=== PATIENT | male | born 1960 | race Caucasian/White ===

== ENCOUNTER → 2020-11-09 | Outpatient (CLI) | payer OTHER | LOC: SJCVC 15:59 → SJCVCIMAG 15:59 | PROVIDERS: ATTEND Internal Medicine | DX: I08.8 Other rheumatic multiple valve diseases (principal); I25.10 Atherosclerotic heart disease of native coronary artery without angina pectoris; F17.200 Nicotine dependence, unspecified, uncomplicated; Z95.1 Presence of aortocoronary bypass graft ==

== ENCOUNTER → 2020-12-25 | Outpatient (CLI) | payer OTHER | LOC: LAB 09:51 | PROVIDERS: ATTEND Internal Medicine Cardiovascular Disease | DX: Z20.822 Contact with and (suspected) exposure to COVID-19 (principal) ==

== ENCOUNTER 2020-12-29 06:32 | Inpatient (IN) | payer OTHER ==
[~2020-12-29] VITALS: Ht 180.3 cm; Wt 127.0 kg
--- NOTE | ~2020-12-29 | P ---
[facility] [place], [place] [address] PROCEDURE REPORT Name: JAKI GONZALEZ Room #: 212-P [facility] M.R.#: [id number] Admission: 12/29/20 Attend Phys: Spencer Don MD Discharge: Date of : 58 Report #: [id number] THIS REPORT FOR: cc: Rachel Zhang MD,Rachel Don,Spencer Barrios MD ~ DATE OF SERVICE: 12/29/2020 PROCEDURE: Pacemaker implantation. PREOPERATIVE DIAGNOSES: 1. Sick sinus syndrome. 2. Complete heart block. HISTORY: The patient is a 60-year-old with symptomatic bradycardia secondary to sick sinus syndrome and intermittent complete heart block, here for dual chamber pacemaker implantation. ANESTHESIA: The patient underwent MAC anesthesia with no anesthesia related complications. DESCRIPTION OF PROCEDURE: The patient underwent informed consent. We discussed the details of the procedure including the risks, which include but not limited to bleeding, infection, vascular damage, cardiac perforation and pneumothorax. He understood these risks and is willing to proceed. The patient was brought to EP laboratory in fasting and sedated state, prepped and draped in a sterile fashion, underwent venogram and received IV antibiotics prior to initiation of the procedure. Next, lidocaine was injected below the level of left clavicle. Incision was made, pocket created over the prepectoral fascia and access was obtained twice to left axillary vein using the extrathoracic approach. Sheaths were positioned using the modified Seldinger technique and a lead was repositioned multiple times of the right ventricle. He had a lot of tricuspid regurgitation and small R waves. Eventually, I was at the apical septum with adequate pacing and sensing thresholds. Next, atrial lead was positioned in right atrial appendage with adequate pacing and sensing thresholds. Leads were sutured to prepectoral fascia using Ethibond suture. The device was connected. Tug test performed. Pocket was irrigated with vancomycin. The pocket was closed in 2 layers and surgical glue was placed to outer skin layer. The patient awoke neurologically and hemodynamically intact. No complications and no significant bleeding. Implanted pacemaker was a Medtronic model number W3DR01, serial #[id number]. Atrial lead was a model #5076, 52 cm, serial #[id number]. RV lead was a model #5076, 58 cm, serial #[id number]. Atrial lead demonstrated P waves 1.8 millivolts, pacing impedance 608 ohms, pacing threshold 0.9 volts at 0.5 milliseconds. RV lead demonstrated [facility] [place] [place] [address] [place] [address] PROCEDURE REPORT Name: JAKI GONZALEZ Room #: 212-P [facility]#: [id number] Admission: 12/29/20 Attend Phys: Spencer Don MD Discharge: Date of : 58 Report #: [id number] R waves of 5.9 millivolts, pacing impedance of 988 ohms, pacing threshold 0.7 volts at 0.5 milliseconds. The device was programmed to the DDDR 60-130 mode. MVP was enabled. CONCLUSIONS: 1. Successful dual-chamber pacemaker implantation. 2. Satisfactory atrial and ventricular pacing and sensing thresholds. By: [id number] Spencer Don MD /nt
--- NOTE | ~2020-12-29 | D ---
[facility] [place] [address] DISCHARGE SUMMARY Name: JAKI GONZALEZ Room #: 212-P ADM IN M.R.#: [id number] Admission: 12/29/20 Attend Phys: Spencer Don MD Discharge: Date of : 58 Report #: [id number] THIS REPORT FOR: cc: Rachel Zhang MD,Rachel Cameron,John Neri MD ~ DATE OF SERVICE: 12/30/2020 ADMITTING DIAGNOSIS: Sick sinus syndrome with heart block. DISCHARGE DIAGNOSIS: Sick sinus syndrome with heart block. PROCEDURE PERFORMED: Dual-chamber pacemaker implantation. FOLLOWUP: 1. With Dr. Don in 4 weeks. 2. Incision check in 1 week in the office. DISCHARGE INSTRUCTIONS: 1. Maintain immobilizer for 48 hours and then at bedtime for 6 weeks. 2. No driving for 1 week. 3. Maintain incision clean and dry for 1 week. BRIEF CLINICAL HISTORY: See history and physical in the chart. HOSPITAL COURSE: The patient was admitted to the hospital and underwent uncomplicated dual-chamber pacemaker implantation. The patient is sensing and capture thresholds were verified ____ doing quite well. Post-procedure in the following day, chest x-ray failed to demonstrate any significant pneumothorax without any acute changes. His thresholds were verified and satisfactory. Instructions were given and the patient was discharged to home in stable condition to follow up with previously stated discharge instructions and medications. By: [id number] John Cameron MD /gayla
[2020-12-29 07:58] LABS: ABSOLUTE NEUTROPHILS 2.3 thou/uL (1.4-8.2); BASOPHILS 0.6 % (0.0-2.0); EOSINOPHILS 3.5 % (0.0-3.0); HEMATOCRIT 40.2 % (42.0-52.0); HEMOGLOBIN 13.3 gm/dL (14.0-18.0); LYMPHOCYTES 42.2 % (24.0-44.0); MCH 30.4 pg (26.0-34.0); MCHC 33.1 g/dL (28.0-37.0); MONOCYTES 9.2 % (1.0-8.0); PLATELET COUNT 178 thou/uL (150-400); POLYS 44.5 % (36.0-66.0); RBC 4.37 mil/uL (4.50-6.00); RDW 14.1 % (10.5-14.5); WBC 5.2 thou/uL (4.0-11.0)
[2020-12-29 08:17] LABS: CALCIUM 9.8 mg/dL (8.5-10.1); CREATININE 1.1 mg/dL (0.7-1.3)
[2020-12-29 08:19] LABS: POTASSIUM 3.7 mmol/L (3.5-5.1)
[2020-12-29 08:23] LABS: ALBUMIN 3.4 g/dL (3.4-5.0); TOTAL BILIRUBIN 0.5 mg/dL (0.2-1.0); TOTAL PROTEIN 8.2 g/dL (6.4-8.2)
[2020-12-29] MEDS ORDERED: ASA81BEC PO (08:51)
[2020-12-29] MEDS ORDERED: HYDROCHLOROTHIA25 M2 PO (08:52)
[2020-12-29] MEDS ORDERED: LISINOPRIL5 MG PO (08:53)
[2020-12-29] MEDS ORDERED: CRESTOR20 MG PO (08:53)
[2020-12-29 09:25] LABS: APTT 27.3 Seconds (24.5-32.8); PROTIME 10.5 Seconds (9.3-11.4)
--- NOTE | 2020-12-29 11:13 | NUR ---
ASSUME CARE OF PT AT APPROX 1100 FROM [employer]ING P[employer]OUNTER D/T PACEMAKER PLACEMENT. PT SETTLED AND ORIENTED IN ROOM. AT BEDSIDE. VITALS RECORDED. WILL CONTINUE TO MONITOR AND FOLLOW POC.
[2020-12-29 11:54] VITALS: BP 155/100
[2020-12-29 14:12] VITALS: BP 154/93
[2020-12-29 16:11] VITALS: BP 153/87
--- NOTE | 2020-12-29 18:41 | NUR ---
PT OFF BEDREST. C/O L CHEST PAIN TREATED WITH TYLENOL WITH PARTIAL RELIEF. PLAN FOR DISCHARGE TOMORROW AFTER DEVICE CHECK AND CXR. WILL CONTINUE TO MONITOR AND FOLLOW POC.
[2020-12-29 19:38] VITALS: BP 147/87
[2020-12-30 00:21] VITALS: BP 150/90
[2020-12-30 04:27] VITALS: BP 153/84
--- NOTE | 2020-12-30 05:04 | NUR ---
Assumed pt care at 1900. Pt is alert and oriented. No sign of distress noted in pt. Pacemaker in place. Pt is ambulatory. Assessment completed and documented. No meds administered. No acute events overnight, continue to monitor. No further needs at this time.
[2020-12-30 07:35] VITALS: BP 150/60
[2020-12-30 10:33] VITALS: BP 150/60
--- NOTE | 2020-12-30 11:30 | NUR ---
pt assessed, daughter came to side, reviewed all DC instructions with pt after both Machelle, PULP MACHINE OPERATOR, AND DR MENDEZ SAW PT, PT'S DEVICE INTEROGATTED AND "LOOKS GREAT" PER REP, REVIEWED MEDS, SITE CARE, AND FOLLOW UP APPOINTMENTS, BOTH PT AND DTR VERBALIZED UNDERSTANDING, IVS REMOVED, TELE REMOVED, PT LEFT WITH DTR AND TOOK ALL BELONGINGS
== END 2020-12-30 11:15 | disposition home or self-care (01) | DRG 244 ==
LOC: CATH 06:32 → 2N 11:01 → CATH 11:57 → 2N 12-30 11:15
PROVIDERS: ADMIT Internal Medicine Cardiovascular Disease; ATTEND Internal Medicine Cardiovascular Disease
PROC: 02HK3JZ Insertion of Pacemaker Lead into Right Ventricle, Percutaneous Approach (ICD-10-PCS; principal; 2020-12-29)
PROC: 0JH606Z Insertion of Pacemaker, Dual Chamber into Chest Subcutaneous Tissue and Fascia, Open Approach (ICD-10-PCS; principal; 2020-12-29)
PROC: 02H63JZ Insertion of Pacemaker Lead into Right Atrium, Percutaneous Approach (ICD-10-PCS; principal; 2020-12-29)
PROC: B51N1ZZ Fluoroscopy of Left Upper Extremity Veins using Low Osmolar Contrast (ICD-10-PCS; principal; 2020-12-29)
DX: I49.5 Sick sinus syndrome (principal); I45.9 Conduction disorder, unspecified; Z79.82 Long term (current) use of aspirin; Z79.899 Other long term (current) drug therapy
CPT/HCPCS: 10797; 70005